=== PATIENT | male | born 1995 | race African-American/Black ===

== ENCOUNTER 2023-06-26 07:45 | Outpatient (CLI) | payer OTHER ==
--- NOTE | 2023-06-26 16:43 | XRAY Report ---
PROCEDURE: Hand 3 View RT INDICATIONS: PAIN IN RIGHT FINGER TECHNIQUE: 3 views of the hand(s) acquired. COMPARISON: None. FINDINGS: Bones: There is a mildly displaced oblique fracture of the mid/distal aspect of the proximal phalanx of the fifth digit. No suspicious bony lesions. Soft tissues: No suspicious soft tissue calcifications or masses. IMPRESSION: Fifth digit fracture. Reviewed by: Nancy Floyd MD on 06/26/2023 4:41 PM PST Approved by: Nancy Floyd MD on 06/26/2023 4:41 PM PST Station ID: [id number]
== END 2023-06-26 08:00 | disposition home or self-care (01) ==
LOC: DI.N 07:45
PROVIDERS: ATTEND Physician Assistant Medical
DX: S62.616A Displaced fracture of proximal phalanx of right little finger, initial encounter for closed fracture (principal)